=== PATIENT | female | born 1995 | race Two or more races ===

== ENCOUNTER 2020-01-09 17:57 | Emergency (ER) | payer MEDICAID, OTHER ==
[~2020-01-09] VITALS: Ht 157.5 cm; Wt 41.7 kg
[2020-01-09 18:11] VITALS: BP 109/70
[2020-01-09] MEDS ORDERED: KETOROLAC TROMETH 60MG/2ML VIAL IM ONE (21:00)
== END 2020-01-09 22:16 | disposition home or self-care (01) ==
LOC: ER 17:57
DX: S30.0XXA Contusion of lower back and pelvis, initial encounter (principal); W19.XXXA Unspecified fall, initial encounter; Y93.89 Activity, other specified; Y92.89 Other specified places as the place of occurrence of the external cause; Y99.8 Other external cause status
CPT/HCPCS: 72220; 96372; 99283; J1885

== ENCOUNTER 2020-05-18 10:52 | Emergency (ER) | payer MEDICAID ==
[~2020-05-18] VITALS: Ht 157.5 cm; Wt 41.3 kg
[2020-05-18 11:01] VITALS: BP 127/75
== END 2020-05-18 12:42 | disposition home or self-care (01) ==
LOC: ER 10:52
DX: J03.90 Acute tonsillitis, unspecified (principal)

== ENCOUNTER 2021-04-03 18:23 | Emergency (ER) | payer MEDICAID ==
[~2021-04-03] VITALS: Ht 152.4 cm; Wt 40.8 kg
[2021-04-03 22:38] VITALS: BP 113/76
[2021-04-03] MEDS ORDERED: NAPROXEN 500 MG TAB PO ONE (23:15)
[2021-04-03] MEDS ORDERED: traMADol HCL 50 MG TAB PO ONE (23:45)
== END 2021-04-04 04:06 | disposition home or self-care (01) ==
LOC: ER 18:26
DX: L72.3 Sebaceous cyst (principal)
CPT/HCPCS: 73200; 76881

== ENCOUNTER 2021-04-23 08:56 | Emergency (ER) | payer MEDICAID ==
[~2021-04-23] VITALS: Ht 152.4 cm; Wt 42.2 kg
[2021-04-23 09:02] VITALS: BP 143/75
[2021-04-23 09:59] LABS: Basophils # (auto) 0 10 ^3/uL (0-0.2); Basophils % (auto) 0.4 % (0.0-2.0); Eosinophils # (auto) 0.1 10 ^3/uL (0-0.8); Eosinophils % (auto) 0.9 % (0.0-7.0); Hematocrit 39.2 % (36.0-46.0); Hemoglobin 13.5 g/dL (12.2-16.2); Lymphocytes # (auto) 3.1 10 ^3/uL (0.4-5.4); Lymphocytes % (auto) 37.2 % (10.0-50.0); Mean Corpuscular Hgb Conc. 34.5 g/dL (32.0-36.0); Monocytes # (auto) 0.9 10 ^3/uL (0-1.3); Monocytes % (auto) 11.4 % (0.0-12.0); Neutrophils # (auto) 4.2 10 ^3/uL (1.6-8.6); Neutrophils % (auto) 50.1 % (37.0-80.0); Red Blood Cells 4.51 10^6/uL (4.0-5.20); Red Cell Distribution Width 13.3 % (11.8-14.3); White Blood Cell 8.3 10^3/uL (4.4-10.8)
== END 2021-04-23 10:46 | disposition home or self-care (01) ==
LOC: ER 08:56
DX: G89.18 Other acute postprocedural pain (principal); R07.0 Pain in throat; K91.840 Postprocedural hemorrhage of a digestive system organ or structure following a digestive system procedure; F41.9 Anxiety disorder, unspecified; Z90.49 Acquired absence of other specified parts of digestive tract; Z90.89 Acquired absence of other organs
CPT/HCPCS: 36415; 85025

== ENCOUNTER 2021-08-15 19:41 | Emergency (ER) | payer MEDICAID ==
[~2021-08-15] VITALS: Ht 154.9 cm; Wt 38.1 kg
[2021-08-15] MEDS ORDERED: CLINDAMYCIN 600MG IV 50 ML IV ONE (21:00)
[2021-08-15] MEDS ORDERED: RABIES VIRUS VACCINE, HDC 2.5 UNIT/ML ML IM ONE (21:44)
[2021-08-15 22:03] LABS: Basophils # (auto) 0 10 ^3/uL (0-0.2); Basophils % (auto) 0.1 % (0.0-2.0); Eosinophils # (auto) 0 10 ^3/uL (0-0.8); Eosinophils % (auto) 0.5 % (0.0-7.0); Hematocrit 37.8 % (36.0-46.0); Hemoglobin 13.1 g/dL (12.2-16.2); Lymphocytes % (auto) 36.3 % (10.0-50.0); Mean Corpuscular Hemoglobin 30.6 pg (28.0-32.0); Mean Corpuscular Hgb Conc. 34.7 g/dL (32.0-36.0); Mean Corpuscular Volume 88.1 fL (80.0-100.0); Monocytes # (auto) 0.7 10 ^3/uL (0-1.3); Monocytes % (auto) 8.8 % (0.0-12.0); Neutrophils # (auto) 4.5 10 ^3/uL (1.6-8.6); Neutrophils % (auto) 54.3 % (37.0-80.0); Nucleated Red Blood Cells % 0.1 %; Red Blood Cells 4.29 10^6/uL (4.0-5.20); Red Cell Distribution Width 13.5 % (11.8-14.3); White Blood Cell 8.3 10^3/uL (4.4-10.8)
[2021-08-15 22:20] LABS: Calcium 8.8 mg/dL (8.5-10.1); Potassium 3.7 mmol/L (3.5-5.1)
[2021-08-15 22:24] LABS: BUN/Creatinine Ratio 21.3
[2021-08-15] MEDS ORDERED: KETOROLAC TROMETH 30 MG/ML 1ML VIAL IV ONE (22:30)
[2021-08-15] MEDS ORDERED: RABIES VACCINE (PCEC)/PF 2.5 UNITS IM ONE (23:00)
[2021-08-16 00:53] VITALS: BP 101/53
== END 2021-08-16 01:16 | disposition home or self-care (01) ==
LOC: ER 19:43
DX: S61.452A Open bite of left hand, initial encounter (principal); Z32.02 Encounter for pregnancy test, result negative; Z20.3 Contact with and (suspected) exposure to rabies; W55.01XA Bitten by cat, initial encounter; Y93.89 Activity, other specified; Y92.89 Other specified places as the place of occurrence of the external cause; Y99.8 Other external cause status
CPT/HCPCS: 36415; 80048; 81025; 85025; 90471; 90675; 96365; 96375; 99284; J1885; J3490

== ENCOUNTER 2021-08-17 23:42 | Emergency (ER) | payer MEDICAID ==
[~2021-08-17] VITALS: Ht 154.9 cm; Wt 38.6 kg
[2021-08-17 23:42] VITALS: BP 139/90
[2021-08-18] MEDS ORDERED: KETOROLAC TROMETH 30 MG/ML 1ML VIAL IV ONE (01:30)
[2021-08-18] MEDS ORDERED: AMOX500T86 PO (01:45)
[2021-08-18] MEDS ORDERED: IBUP800T27 PO (01:45)
== END 2021-08-18 02:10 | disposition home or self-care (01) ==
LOC: ER 23:48
DX: S61.452D Open bite of left hand, subsequent encounter (principal); L03.114 Cellulitis of left upper limb; Z90.89 Acquired absence of other organs; Z90.49 Acquired absence of other specified parts of digestive tract; Z79.1 Long term (current) use of non-steroidal anti-inflammatories (NSAID); Z79.2 Long term (current) use of antibiotics; W55.01XD Bitten by cat, subsequent encounter
CPT/HCPCS: 96374; 99283; J1885

== ENCOUNTER 2022-05-04 12:02 | Emergency (ER) | payer MEDICAID ==
[~2022-05-04] VITALS: Ht 152.4 cm; Wt 42.6 kg
[~2022-05-04 12:02] MED LIST: AMOX500T86 PO; IBUP800T27 PO
[2022-05-04 13:52] VITALS: BP 103/60
[2022-05-04] MEDS ORDERED: IBUP600T27 PO (14:12)
[2022-05-04] MEDS ORDERED: AMOX-277 PO (14:12)
== END 2022-05-04 14:23 | disposition home or self-care (01) ==
LOC: ER 12:05
DX: H66.92 Otitis media, unspecified, left ear (principal); Z90.49 Acquired absence of other specified parts of digestive tract; Z90.89 Acquired absence of other organs; Z79.1 Long term (current) use of non-steroidal anti-inflammatories (NSAID); Z79.2 Long term (current) use of antibiotics

== ENCOUNTER 2023-04-07 20:36 | Emergency (ER) | payer MEDICAID, OTHER ==
[~2023-04-07] VITALS: Ht 157.5 cm; Wt 101.0 kg
[~2023-04-07 20:36] MED LIST changes: +AMOX875T4 PO; +IBUP-1454 PO; +IBUP-1456 PO; -IBUP800T27 PO
[2023-04-07] MEDS ORDERED: HYDROcodone-ACET 10/325MG TAB PO ONE (22:00)
[2023-04-07] MEDS ORDERED: ONDANSETRON ODT 4 MG TAB PO ONE (22:00)
[2023-04-07 22:26] LABS: Basophils # (auto) 0 10 ^3/uL (0-0.2); Basophils % (auto) 0.4 % (0.0-2.0); Eosinophils # (auto) 0.1 10 ^3/uL (0-0.8); Eosinophils % (auto) 1.2 % (0.0-7.0); Hematocrit 33.3 % (36.0-46.0); Hemoglobin 11.3 g/dL (12.2-16.2); Lymphocytes # (auto) 2.9 10 ^3/uL (0.4-5.4); Lymphocytes % (auto) 42.7 % (10.0-50.0); Mean Corpuscular Hemoglobin 30.3 pg (28.0-32.0); Mean Corpuscular Hgb Conc. 34.1 g/dL (32.0-36.0); Mean Corpuscular Volume 88.8 fL (80.0-100.0); Monocytes # (auto) 0.7 10 ^3/uL (0-1.3); Monocytes % (auto) 10.3 % (0.0-12.0); Neutrophils # (auto) 3.1 10 ^3/uL (1.6-8.6); Neutrophils % (auto) 45.4 % (37.0-80.0); Nucleated Red Blood Cells % 0.1 %; Red Blood Cells 3.75 10^6/uL (4.0-5.20); Red Cell Distribution Width 13.4 % (11.8-14.3); White Blood Cell 6.8 10^3/uL (4.4-10.8)
[2023-04-07 22:35] LABS: Alanine Aminotransferase 27 U/L (7-40); Alkaline Phosphatase 68 U/L (46-116); Anion Gap 3 (5-15); Aspartate Aminotransferase 20 U/L (13-40); BUN/Creatinine Ratio 10.3 (10.0-20.0); Blood Urea Nitrogen 6 mg/dL (9-23); Calcium 8.6 mg/dL (8.7-10.4); Carbon Dioxide 25 mmol/L (20-30); Chloride 109 mmol/L (98-107); Glucose 88 mg/dL (74-106); Lipase 51 U/L (12-53); Potassium 3.3 mmol/L (3.5-5.1); Sodium 137 mmol/L (136-145)
[2023-04-07 22:36] LABS: Bilirubin, Total 0.4 mg/dL (0.2-1.0); Total Protein 6.5 g/dL (5.7-8.2)
[2023-04-07 23:12] LABS: Urine Bacteria NONE SEEN /hpf (None Seen); Urine Blood Negative /uL (Negative); Urine Clarity Clear (Clear); Urine Color Yellow (Yellow); Urine Mucus FEW (None Seen); Urine Protein, UAD TRACE (Negative); Urine Specific Gravity 1.021 (1.001-1.035); Urine Urobilinogen Normal (Negative); Urine WBC 4 /hpf (0 - 5)
[2023-04-08 02:15] VITALS: BP 102/67; PULSE 71; RESP 18; TEMP 98; O2SAT 100
== END 2023-04-08 02:12 | disposition home or self-care (01) ==
LOC: ER 20:37
DX: O36.4XX0 Maternal care for intrauterine death, not applicable or unspecified (principal); R10.2 Pelvic and perineal pain; Z3A.01 Less than 8 weeks gestation of pregnancy
CPT/HCPCS: 36415; 74176; 76801; 76817; 80053; 81001; 83690; 84702; 85025; 86901; 99284; Q0162

== ENCOUNTER 2023-09-13 04:04 | Emergency (ER) | payer OTHER ==
[~2023-09-13] VITALS: Ht 157.5 cm; Wt 47.4 kg
[2023-09-13 04:16] VITALS: BP 115/76; PULSE 80; RESP 16; O2SAT 100
== END 2023-09-13 05:48 | disposition home or self-care (01) ==
LOC: ER 04:04
DX: K64.4 Residual hemorrhoidal skin tags (principal); L91.8 Other hypertrophic disorders of the skin

== ENCOUNTER 2025-01-05 12:57 | Emergency (ER) | payer MEDICAID ==
[~2025-01-05] VITALS: Ht 157.5 cm; Wt 50.3 kg
--- NOTE | 2025-01-05 13:24 | ED.PDOC ---
Back pain HPI HPI Comments 29 year old female presents for myalgia. Pt states she has been having associated lower back pain with bilateral gluteal pain that radiates down the posterior RLE. Pt states she has been having exacerbation of her symptoms with movement or exertion with no relieving factors. Pt has been taking Tylenol and ibuprofen with minimal improvement of pain. Pt otherwise denies any sick contacts. Pt has noted stable vitals in the ED. Pt denies any other symptoms at this time. Denies dysuria LMP 31 of December Not on control Denies sore throat ear pain loss of taste loss of smell Time Seen by MD: 13:19 Primary Care Provider: None Reviewed Notes: Nurses Notes, Medications, Allergies Allergies: Coded Allergies: No Known Drug Allergy (Verified Allergy, Unknown, 01/09/20) Home Meds Active Scripts Naproxen (Naproxen) 500 Mg Tab, 500 MG PO BIDPC for 10 Days, #20 TAB 0 Refills Prov:EAGLE ROSA [employer] CHEMIST 01/05/25 Ibuprofen (Ibuprofen) 600 Mg Tab, 1 TAB PO TID, #30 TAB Prov:EKATERINA SUMMERS 05/04/22 Amoxicillin & Pot Clavulanate (Amoxicillin/Potassium Cla) 875 Mg Tab, 1 TAB PO BID, #20 TAB Prov:EKATERINA SUMMERS 05/04/22 Ibuprofen (Ibuprofen) 800 Mg Tab, 1 TAB PO TID, #30 TAB 0 Refills Prov:EDE SLADE 08/18/21 Amoxicillin & Pot Clavulanate (Augmentin) 500 Mg Tab, 1 TAB PO BID for 7 Days, #14 TAB 0 Refills Prov:EDE SLADE 08/18/21 Information Source: Patient Mode of Arrival: Ambulatory Past Medical History PAST MEDICAL HISTORY: Anxiety Surgical History: Appendectomy, Tonsillectomy VISUAL TRAINING AIDE History: No Pertinent VISUAL TRAINING AIDE History Family History Family History: Reviewed,noncontributory to illness Social History Smoker: Non-Smoker Alcohol: Denies ETOH Use Drugs: Denies Drug Use Lives In: Home All Other Systems: Reviewed and Negative (see HPI) Physical Exam General Appearance: No Apparent Distress, Normal HEENT: Normal ENT Inspection, Pharynx Normal, TMs Normal Neck: Full Range of Motion, Non-Tender, Normal, Normal Inspection Respiratory: Chest Non-Tender, Lungs Clear, No Accessory Muscle Use, No Respiratory Distress, Normal Breath Sounds Cardiovascular: No Edema, No JVD, No Murmur, No Gallop, Normal Peripheral Pulses, Regular Rate/Rhythm Breast Exam: Deferred Gastrointestinal: No Organomegaly, Non Tender, No Pulsatile Mass, Normal Bowel Sounds, Soft Genitalia: Deferred Pelvic: Deferred Rectal: Deferred Extremities: No calf tenderness, Normal capillary refill, Normal inspection, Normal range of motion, Non-tender, No pedal edema Musculoskeletal : Apperance: Normal Neurologic: Alert, cargo router II-XII nml as Tested, No Motor Deficits, Normal Affect, Normal Mood, No Sensory Deficits Cerebellar Function: Normal Reflexes: Normal Skin: Dry, Normal Color, Warm Lymphatic: No Adenopathy Was a procedure done? Was a procedure done?: No Back Pain Differential Dx Differential Diagnosis: Musculoskeletal Pain, Strain Other Differential Diagnosis muscle spasm, muscle strain X-Ray, Labs, Meds, VS Vital Signs Date Time Temp Pulse Resp B/P (MAP) Pulse Ox O2 Delivery O2 Flow Rate FiO2 01/05/25 13:27 98.7 87 16 109/60 (76) 100 98.7 Lab Test 01/05/25 13:36 01/05/25 13:24 01/05/25 13:20 Range/Units White Blood Count 4.8 4.4-10.8 10^3/uL Red Blood Count 4.11 4.0-5.20 10^6/uL Hemoglobin 12.6 12.2-16.2 g/dL Hematocrit 35.9 L 36.0-46.0 % Mean Corpuscular Volume 87.5 80.0-100.0 fL Mean Corpuscular Hemoglobin 30.6 28.0-32.0 pg Mean Corpuscular Hemoglobin Concent 35.0 32.0-36.0 g/dL Red Cell Distribution Width 13.1 11.8-14.3 % Platelet Count 185 140-450 10^3/uL Mean Platelet Volume 9.9 6.9-10.8 fL Neutrophils (%) (Auto) 67.8 37.0-80.0 % Lymphocytes (%) (Auto) 18.2 10.0-50.0 % Monocytes (%) (Auto) 12.3 H 0.0-12.0 % Eosinophils (%) (Auto) 1.1 0.0-7.0 % Basophils (%) (Auto) 0.6 0.0-2.0 % Neutrophils # (Auto) 3.2 1.6-8.6 10 ^3/uL Lymphocytes # (Auto) 0.9 0.4-5.4 10 ^3/uL Monocytes # (Auto) 0.6 0-1.3 10 ^3/uL Eosinophils # (Auto) 0.1 0-0.8 10 ^3/uL Basophils # (Auto) 0 0-0.2 10 ^3/uL Nucleated Red Blood Cells 0.2 % Erythrocyte Sedimentation Rate 9 0-20 mm/hr Sodium Level 143 136-145 mmol/L Potassium Level 3.5 3.5-5.1 mmol/L Chloride Level 106 98-107 mmol/L Carbon Dioxide Level 29 20-31 mmol/L Anion Gap 8 5-15 Blood Urea Nitrogen 13 9-23 mg/dL Creatinine 0.65 0.550-1.02 mg/dL Glomerular Filtration Rate Calc 124 >90 mL/min BUN/Creatinine Ratio 20.0 10.0-20.0 Serum Glucose 94 74-106 mg/dL Calcium Level 9.7 8.7-10.4 mg/dL C-Reactive Protein High Sensitivity 0.17 <1.0 mg/dL Influenza Type A Antigen Negative Negative Influenza Type B Antigen Negative Negative SARS-CoV-2 Antigen (Rapid) Negative NEGATIVE Urine Color Yellow Yellow Urine Clarity Clear Clear Urine pH 6.0 5.0-9.0 Urine Specific [place] 1.027 1.001-1.035 Urine Protein Negative Negative Urine Ketones Negative Negative Urine Blood Negative Negative /uL Urine Nitrite Negative Negative Urine Bilirubin Negative Negative Urine Urobilinogen Normal Negative mg/dL Urine Leukocyte Esterase Negative Negative /uL Urine RBC 1 0 - 4 /hpf Urine Microscopic WBC 1 0-5 /HPF Urine Squamous Epithelial Cells Few <5 /hpf Urine Bacteria Few H None Seen /hpf Urine Mucus Few None Seen Urine Glucose Normal Normal mg/dL Urine Test Negative Negative [address] [address] Ph: [phone] DIAGNOSTIC IMAGING Diagnostic Imaging Report : [id number] Signed PATIENT: FEMI AGUILAR ACCT: [id number] UNIT: [id number] : 1995 LOC: ER ROOM / BED: / AGE / SEX: 29 / F ADM STATUS: REG ER SERVICE 1323 ORDERING PHYSICIAN: EAGLE ROSA NP PROCEDURE(s): CXR1 - CHEST XRAY 1 VIEW REASON: r/o pna ORDER NUMBER(s): [id number], ACCESSION NUMBER(s): [id number] CHEST RADIOGRAPH Indication: Pain Technique: Single frontal view of the chest was obtained COMPARISON: None FINDINGS: Lines and Tubes: None Lungs: Clear Pleura: No effusion. No pneumothorax. Cardiomediastinal contours: Unremarkable Bones: Unremarkable IMPRESSION: No acute disease. ATED BY: HUMBERTO ANDERSON MD DICTATED DATE/TIME: 01/05/251453 SIGNED BY: HUMBERTO ANDERSON MD SIGNED DATE/TIME: 01/05/251453 CC: X-Ray, Labs, Meds, VS Comment Patient arrives alert and oriented, ABC's intact, afebrile, vital signs stable, saturating well in room air Peripheral IV insertion+ labs were ordered. CBC was ordered to exclude anemia, blood loss, or infection. BMP was ordered to exclude electrolyte abnormalities, renal failure, dehydration, hyperglycemia CMP was ordered to exclude electrolyte abnormalities, renal failure, dehydration, hyperglycemia and/or liver enzyme abnormalities. Urinalysis was ordered to rule out UTI or hematuria. Diagnostic imaging ordered by me and results interpreted by radiology : PROCEDURE(s): CXR1 - CHEST XRAY 1 VIEW IMPRESSION: No acute disease. Labs in the ED showed (pertinent+ and then pertinent-) Patient was given:_. Tolerated medications with no adverse reaction. Additional MDM Review of External, Non-ED records: External records reviewed. Discussion with independent historian (EMS, family) history obtained from the patient/parents (if applicable) at bedside Chronic conditions affecting care: None Social determinants of health affecting care: None Consideration of admission (observation or admission): I considered escalation of care to admission for this patient, however given the reassuring workup, the patient is safe for outpatient management. Discussion with the Radiology: No Tests considered but not performed: Prescription medication considered but not given: Time of 1ST Reevaluation: 15:16 Reevaluation 1ST: Improved Patient Education/Counseling: Diagnosis, Treatment Family Education/Counseling: No Family Present SEPSIS Sepsis Screen Physician Orders Chest Xray 1 View (01/05/25 13:23) Vital Signs Date Time Temp Pulse Resp B/P (MAP) Pulse Ox O2 Delivery O2 Flow Rate FiO2 01/05/25 13:27 98.7 87 16 109/60 (76) 100 98.7 Laboratory Tests Test 01/05/25 13:36 White Blood Count 4.8 10^3/uL (4.4-10.8) Departure 1 Departure Time of Disposition: 15:17 Impression: Primary Impression: Muscle pain Additional Impression: Joint pain Qualified Codes: M25.50 - Pain in unspecified joint Disposition: HOME / SELF CARE / HOMELESS Condition: Stable e-Prescriptions Naproxen (Naproxen) 500 Mg Tab 500 MG PO BIDPC for 10 Days, #20 TAB 0 Refills Prov: EAGLE ROSA NP 01/05/25 Critical Care Note Critical Care Time?: No Stability Stability form required: No Heart Score Heart Score: Heart Score Response (Comments) Value History N/A 0 EKG N/A 0 Age N/A 0 Risk Factors N/A 0 Troponin N/A 0 Total 0 I personally scribed for EAGLE ROSA NP ([place]) on 01/05/25 at 14:42. Electronically submitted by Evelyn Perez (Behind the Burner). I personally scribed for EAGLE ROSA NP ([place]) on 01/05/25 at 15:11. Electronically submitted by Evelyn Perez (Behind the Burner). I personally scribed for EAGLE ROSA NP ([place]) on 01/05/25 at 15:32. Electronically submitted by Evelyn Perez (Behind the Burner). EAGLE ROSA NP Jan 05, 2025 13:24
[2025-01-05 13:54] LABS: Hematocrit 35.9 % (36.0-46.0); Hemoglobin 12.6 g/dL (12.2-16.2); Mean Corpuscular Hemoglobin 30.6 pg (28.0-32.0); Mean Corpuscular Volume 87.5 fL (80.0-100.0); Nucleated Red Blood Cells % 0.2 %
[2025-01-05 14:04] LABS: Chloride 106 mmol/L (98-107); Potassium 3.5 mmol/L (3.5-5.1); Sodium 143 mmol/L (136-145)
[2025-01-05 14:05] LABS: Anion Gap 8 (5-15); Carbon Dioxide 29 mmol/L (20-31)
[2025-01-05 14:06] LABS: Calcium 9.7 mg/dL (8.7-10.4)
[2025-01-05 14:07] LABS: COVID19 ANTIGEN SOFIA FIA NEGATIVE (NEGATIVE)
[2025-01-05 14:10] LABS: Glucose 94 mg/dL (74-106)
[2025-01-05 14:11] LABS: BUN/Creatinine Ratio 20.0 (10.0-20.0); Blood Urea Nitrogen 13 mg/dL (9-23)
[2025-01-05 14:24] LABS: Urine Protein, UAD Negative (Negative)
--- NOTE | 2025-01-05 14:57 | DVH ---
CHEST RADIOGRAPH Indication: Pain Technique: Single frontal view of the chest was obtained COMPARISON: None FINDINGS: Lines and Tubes: None Lungs: Clear Pleura: No effusion. No pneumothorax. Cardiomediastinal contours: Unremarkable Bones: Unremarkable IMPRESSION: No acute disease.
[2025-01-05] MEDS ORDERED: NAPR-746 PO (15:17)
[2025-01-05 15:49] VITALS: BP 129/70; PULSE 81; RESP 18; TEMP 98.7; O2SAT 99
== END 2025-01-05 15:54 | disposition home or self-care (01) ==
LOC: ER 12:57
DX: M79.18 Myalgia, other site (principal); M25.50 Pain in unspecified joint; M54.50 Low back pain, unspecified; M79.604 Pain in right leg; Z20.822 Contact with and (suspected) exposure to COVID-19; Z90.49 Acquired absence of other specified parts of digestive tract; Z90.89 Acquired absence of other organs; Z32.02 Encounter for pregnancy test, result negative
CPT/HCPCS: 36415; 71045; 80048; 81001; 81025; 85025; 85652; 86141; 87426; 87804